=== PATIENT | female | born 1930 | race Caucasian/White ===

== ENCOUNTER → 2016-08-20 | Outpatient (CLI) | payer MEDICARE, BC ==
[~2016-08-20] MED LIST: ALBUTEROL SULFAT3 M3 IH; ASPIRIN 81M81 MG/TA2 PO; CIPRO 250MG TA250 MG PO; ELIQUIS 5MG PO; K-DUR 10 MEQ T10 MEQ PO; KLOR-CON SPRIN10 MEQ PO; LASIX 20MG TABL20 MG PO; LASIX 40MG TABL40 MG PO; LEVOXYL0.025 MG PO; LIPITOR20 MG PO; MILLIPRED5 MG PO; MIRALAX PA17 GM/Dose PO; MULTI VITAMINS1 TAB PO; NAMENDA5 MG PO; NORCO 325 MG-51 TAB PO; PREDNISONE 5MG5 MG PO; PREDNISONE1 MG PO; PREDNISONE10 MG PO; PULMICORT0.25 MG/2 IH; TOPROL XL 25MG25 MG PO; TYLENOL 325MG325 MG PO; ZESTRIL 5MG5 MG PO; ZOFRAN 4MG T4 MG/TAB PO
== END ==
LOC: MHCPAIN 10:59
DX: G89.29 Other chronic pain (principal); M50.90 Cervical disc disorder, unspecified, unspecified cervical region; Z79.01 Long term (current) use of anticoagulants
CPT/HCPCS: G0463

== ENCOUNTER → 2016-09-17 | Outpatient (CLI) | payer MEDICARE, BC | LOC: MHCPAIN 12:58 | DX: G89.29 Other chronic pain (principal); M50.90 Cervical disc disorder, unspecified, unspecified cervical region | CPT/HCPCS: G0463 ==

== ENCOUNTER → 2017-08-04 | Outpatient (CLI) | payer MEDICARE, BC | LOC: COL.RAD 11:15 | DX: R31.1 Benign essential microscopic hematuria (principal) ==

== ENCOUNTER → 2018-10-31 | Outpatient (CLI) | payer MEDICARE, BC ==
[~2018-10-31] MED LIST changes: +ALBUTEROL0.83 MG/ML IH; +ATROVENT I0.2 MG/1 M IH; +BACTRIM DS 8001 TAB PO; +KLOR-CON M1010 MEQ PO; +KLOR-CON M2020 MEQ PO; +LOPRESSOR 550 MG/TAB PO; +MYLANTA 150 ML150 M1 PO; +NORVASC 5MG5 MG/TAB PO; +PRILOSEC 20MG20 MG PO; +SYNTHROID0.1 MG/TAB PO; +ZYRTEC 10MG10 MG PO
[2018-10-31 14:16] LABS: COLLECTION METHOD CLEAN CATCH
[2018-10-31 14:48] LABS: MUCOUS Present /lpf; PH 6 (5-8); SQUAMOUS EPITHELIAL 0-2 /hpf; URINE APPEARANCE Clear; URINE BACTERIA None Seen /hpf; URINE BILIRUBIN Negative (NEGATIVE); URINE BLOOD Negative (NEGATIVE); URINE COLOR Yellow; URINE GLUCOSE Negative (NEGATIVE); URINE KETONE Negative (NEGATIVE); URINE LEUKOCYTE ESTERASE Negative (NEGATIVE); URINE NITRATE Negative (NEGATIVE); URINE PROTEIN(semi-quant) Negative (NEGATIVE); URINE RBC 0-2 /hpf; URINE UROBILINOGEN Negative (NEGATIVE); URINE WBC 0-2 /hpf
== END ==
LOC: COL.LAB 10:35
PROVIDERS: Family Medicine
DX: R41.0 Disorientation, unspecified (principal)